=== PATIENT | male | born 1990 | race Caucasian/White ===

== ENCOUNTER 2021-03-30 01:52 | Emergency (ER) | payer OTHER ==
[~2021-03-30] VITALS: Ht 165.1 cm; Wt 68.0 kg
[2021-03-30 01:54] VITALS: BP 137/86
[2021-03-30 02:52] VITALS: BP 137/86
[2021-03-30] MEDS ORDERED: MIDAZOLAM 2 MG/2 ML VIAL IM ONE (03:10)
[2021-03-30] MEDS ORDERED: QUEtiapine FUMARATE 25 MG TAB PO SCH (03:10)
== END 2021-03-30 08:13 ==
LOC: MED 01:52
DX: Z04.1 Encounter for examination and observation following transport accident (principal); V89.2XXA Person injured in unspecified motor-vehicle accident, traffic, initial encounter; Y93.89 Activity, other specified; Y92.89 Other specified places as the place of occurrence of the external cause; Y99.8 Other external cause status
CPT/HCPCS: 99283